=== PATIENT | male | born 1980 | race African-American/Black ===

== ENCOUNTER 2017-06-03 03:46 | Emergency (ER) | payer BC, OTHER ==
[2017-06-03 03:52] VITALS: BP 169/98
[2017-06-03] MEDS ORDERED: ASPIRIN 81 MG TABLET, CHEWABLE PO ONE (03:57)
--- NOTE | 2017-06-03 11:53 | EKG REPORT ---
SEVERITY:- ABNORMAL ECG - SINUS RHYTHM LEFT VENTRICULAR HYPERTROPHY : Confirmed by: Jessa Meza MD 03-Jun-2017 11:52:13
== END 2017-06-03 04:51 | disposition left against medical advice (07) ==
LOC: ER 03:46
DX: Z53.21 Procedure and treatment not carried out due to patient leaving prior to being seen by health care provider (principal)
CPT/HCPCS: 93005; 93010

== ENCOUNTER → 2020-01-02 | Outpatient (CLI) | payer OTHER ==
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
== END ==
LOC: OD 11:49
PROVIDERS: ATTEND Nurse Practitioner Family
DX: S69.91XA Unspecified injury of right wrist, hand and finger(s), initial encounter (principal); X58.XXXA Exposure to other specified factors, initial encounter

== ENCOUNTER 2020-04-09 14:23 | Emergency (ER) | payer OTHER ==
[2020-04-09 14:38] VITALS: BP 132/77
[2020-04-09] MEDS ORDERED: IBUPROFEN 600 MG TABLET PO ONE (15:00)
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
--- NOTE | 2020-04-09 15:31 | RADIOLOGY REPORT (SQ) ---
EXAM DESCRIPTION: WRIST LEFT 3 VIEWS IMAGES COMPLETED DATE/TIME: 04/09/2020 3:19 pm REASON FOR STUDY: injury COMPARISON: None. NUMBER OF VIEWS: Three views. TECHNIQUE: AP, lateral, and oblique radiographic images acquired of the left wrist. LIMITATIONS: None. FINDINGS: MINERALIZATION: Normal. BONES: No acute fracture or dislocation. SOFT TISSUES: No soft tissue swelling or radiopaque foreign body. OTHER: No other findings. IMPRESSION: No acute osseous abnormality of the left wrist. TECHNICAL DOCUMENTATION: JOB ID: [id number] 2010 [employer]- All Rights Reserved Reading location - IP/workstation name: [email or web address]
--- NOTE | 2020-04-09 15:36 | RADIOLOGY REPORT (SQ) ---
EXAM DESCRIPTION: SHOULDER LEFT 2 OR MORE VIEWS IMAGES COMPLETED DATE/TIME: 04/09/2020 3:19 pm REASON FOR STUDY: injury COMPARISON: None. NUMBER OF VIEWS: Three views. TECHNIQUE: Internal rotation, external rotation, and Y view images acquired of the left shoulder. LIMITATIONS: None. FINDINGS: MINERALIZATION: Normal. BONES: No acute fracture. JOINTS: No dislocation. VISUALIZED LUNGS AND RIBS: No pneumothorax or rib fracture. SOFT TISSUES: No radiopaque foreign body. OTHER: No other finding. IMPRESSION: No acute osseous abnormality of the left shoulder. TECHNICAL DOCUMENTATION: JOB ID: [id number] 2010 [employer]- All Rights Reserved Reading location - IP/workstation name: [email or web address]
== END 2020-04-09 15:45 | disposition home or self-care (01) ==
LOC: ER 14:23
DX: M25.511 Pain in right shoulder (principal); M25.531 Pain in right wrist; M62.830 Muscle spasm of back; M54.5 Low back pain; V43.52XA Car driver injured in collision with other type car in traffic accident, initial encounter
CPT/HCPCS: 72110; 99284